=== PATIENT | female | born 1980 | race Hispanic/Latino ===

== ENCOUNTER 2017-05-08 02:03 | Emergency (ER) | payer BC ==
--- NOTE | 2017-05-08 02:11 | ED PDOC ---
Arrival/HPI - General Chief Complaint: Cough, Cold, Congestion Time Seen by Provider: 05/08/17 02:05 Historian: Patient - History of Present Illness Narrative History of Present Illness (Text): 05/08/17 02:10 Pooja Ramos is a 36 year old female who presents to the Emergency department complaining of cough. Patient denies any fever, chills, chest pain, shortness of breath, nausea, vomiting, headache, dizziness, or any other complaints. Symptom Onset: Gradual Symptom Course: Unchanged Activities at Onset: Light Context: Home Past Medical History - Provider Review Nursing Documentation Reviewed: Yes - Infectious Disease Hx of Infectious Diseases: None - Reproductive Menopause: No - Cardiac Hx Cardiac Disorders: Yes Hx Hypertension: Yes - Pulmonary Hx Respiratory Disorders: Yes Hx Asthma: Yes Hx Bronchitis: Yes - Neurological Hx Neurological Disorder: Yes Hx Migraine: Yes - HEENT Hx HEENT Disorder: No - Renal Hx Renal Disorder: No - Endocrine/Metabolic Hx Endocrine Disorders: No - Hematological/Oncological Hx Blood Disorders: Yes Hx Anemia: Yes - Integumentary Hx Dermatological Disorder: No - Musculoskeletal/Rheumatological Hx Musculoskeletal Disorders: No - Gastrointestinal Hx Gastrointestinal Disorders: No - Genitourinary/Gynecological Hx Genitourinary Disorders: No - Psychiatric Hx Psychophysiologic Disorder: No Hx Substance Use: No - Surgical History Hx Tonsillectomy: Yes Other/Comment: Rhinoplasty - Anesthesia Hx Anesthesia: Yes Hx Anesthesia Reactions: No Hx Malignant Hyperthermia: No Family/Social History - Physician Review Nursing Documentation Reviewed: Yes Family/Social History: Unknown Family HX Smoking Status: Former Smoker Hx Alcohol Use: No Hx Substance Use: No Allergies/Home Meds Allergies/Adverse Reactions: Allergies levofloxacin [From Levaquin] Allergy (Verified 05/08/17 02:14) RASH Home Medications: Home Meds Medication Instructions Recorded Confirmed Albuterol HFA [Ventolin HFA 90 1 inhaler INH PRN PRN 05/08/17 05/08/17 mcg/actuation (8 g)] Aspirin 81 mg PO DAILY 05/08/17 05/08/17 Cholecalciferol (Vitamin D3) 1 units PO DAILY 05/08/17 05/08/17 [Dialyvite Vitamin D] Ramapril 5 mg PO DAILY 05/08/17 05/08/17 Review of Systems - Physician Review All systems were reviewed & negative as marked: Yes - Review of Systems Constitutional: Normal. absent: Fevers Eyes: Normal ENT: Normal Respiratory: Cough. absent: SOB Cardiovascular: Normal. absent: Chest Pain Gastrointestinal: Normal. absent: Abdominal Pain, Diarrhea, Nausea, Vomiting Genitourinary Female: Normal. absent: Dysuria, Frequency, Hematuria, Urine Output Changes Musculoskeletal: Normal. absent: Back Pain, Neck Pain Skin: Normal. absent: Rash Neurological: Normal. absent: Headache, Dizziness Endocrine: Normal Hemo/Lymphatic: Normal Psychiatric: Normal Physical Exam Vital Signs Reviewed: Yes Vital Signs Temp Pulse Resp BP Pulse Ox 05/08/17 02:14 98.6 F 102 H 20 146/91 H 98 Temperature: Afebrile Blood Pressure: Normal Pulse: Regular Respiratory Rate: Normal Appearance: Positive for: Well-Appearing, Non-Toxic, Comfortable Pain Distress: None Mental Status: Positive for: Alert and Oriented X 3 - Systems Exam Head: Present: Atraumatic, Normocephalic Pupils: Present: PERRL Extroacular Muscles: Present: EOMI Conjunctiva: Present: Normal Mouth: Present: Moist Mucous Membranes Respiratory/Chest: Present: Clear to Auscultation, Good Air Exchange. No: Respiratory Distress, Accessory Muscle Use Cardiovascular: Present: Regular Rate and Rhythm, Normal S1, S2. No: Murmurs Skin: Present: Warm, Dry, Normal Color. No: Rashes Psychiatric: Present: Alert, Oriented x 3, Normal Insight, Normal Concentration Medical Decision Making ED Course and Treatment: 05/08/17 02:10 Impression: 36 year old female complaining of cough. Differential Diagnosis included but are not limited to: bronchitis Plan: -- Augmentin -- Prednisone -- Reassess and disposition Progress Notes: - Medication Orders Current Medication Orders: Discontinued Medications Amoxicillin/Clavulanate Potassium (Augmentin 875 Mg-125 Mg Tab) 1 tab PO STAT STA PRN Reason: Protocol Stop: 05/08/17 02:17 Last Admin: 05/08/17 02:23 Dose: 1 tab Prednisone (Prednisone Tab) 60 mg PO ONCE STA Stop: 05/08/17 02:15 Last Admin: 05/08/17 02:23 Dose: 60 mg - Scribe Statement The provider has reviewed the documentation as recorded by the Linnea Carrillo Provider Scribe Attestation: All medical record entries made by the Scribtigist were at my direction and personally dictated by me. I have reviewed the chart and agree that the record accurately reflects my personal performance of the history, physical exam, medical decision making, and the department course for this patient. I have also personally directed, reviewed, and agree with the discharge instructions and disposition. Disposition/Present on Arrival - Present on Arrival Any Indicators Present on Arrival: No History of DVT/PE: No History of Uncontrolled Diabetes: No Urinary Catheter: No History of Decub. Ulcer: No History Surgical Site Infection Following: None - Disposition Have Diagnosis and Disposition been Completed?: Yes Diagnosis: Bronchitis Disposition: HOME/ ROUTINE Disposition Time: 03:00 Condition: GOOD Discharge Instructions (ExitCare): Acute Bronchitis (ED) Prescriptions: Fluticasone/Salmeterol 250/50 [Advair Diskus] 1 dsk IH BID #1 inh Amoxicillin/Clavulanate [Augmentin 500 MG-125 MG] 1 tab PO BID #20 tab Fluconazole [Diflucan] 150 mg PO ONCE #1 tab predniSONE [predniSONE Tab] 20 mg PO TID #15 tab Hydrocodone/Chlorpheniramine [Tussionex] 5 ml PO QID #160 ml Referrals: Reuben Craft MD [Primary Care Provider] - Follow up with primary Forms: Vinja (Slovak)
[2017-05-08 02:15] VITALS: BP 146/91; PULSE 102; RESP 20; TEMP 98.6; O2SAT 98
[2017-05-08] MEDS ORDERED: Amoxicillin-Clav 875-125 mg Tab PO STA (02:16)
== END 2017-05-08 03:00 | disposition home or self-care (01) ==
LOC: ED 02:03
DX: J20.9 Acute bronchitis, unspecified (principal); Z87.891 Personal history of nicotine dependence

== ENCOUNTER 2017-05-28 05:15 | Emergency (ER) | payer BC ==
--- NOTE | 2017-05-28 05:44 | ED PDOC ---
Arrival/HPI - General Historian: Patient <HermelindaHenry travis - Last Filed: 05/28/17 06:03> <Carmelo Nguyễn - Last Filed: 05/28/17 06:07> <JessicapaulTorsten - Last Filed: 05/28/17 08:11> - General Time Seen by Provider: 05/28/17 05:20 - History of Present Illness Narrative History of Present Illness (Text): 05/28/17 05:41 36 F presents with 2 day history of L sided back pain from T11-L1. 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 She states that she took ibuprofen and motrin at home, but they have not helped. Pt denies any cp, CVA tenderness, and trauma. Pt further denies cp/sob/f/ch/n/v/d. Patient has no further complaints. (Henry Shen) Past Medical History - Provider Review Nursing Documentation Reviewed: Yes - Travel History Have you recently traveled outside [place] w/in the past 3 mons?: No - Infectious Disease Hx of Infectious Diseases: None - Cardiac Hx Cardiac Disorders: Yes Hx Hypertension: Yes - Pulmonary Hx Respiratory Disorders: Yes Hx Asthma: Yes Hx Bronchitis: Yes - Neurological Hx Neurological Disorder: Yes Hx Migraine: Yes - HEENT Hx HEENT Disorder: No - Renal Hx Renal Disorder: No - Endocrine/Metabolic Hx Endocrine Disorders: No - Hematological/Oncological Hx Blood Disorders: Yes Hx Anemia: Yes - Integumentary Hx Dermatological Disorder: No - Musculoskeletal/Rheumatological Hx Musculoskeletal Disorders: No - Gastrointestinal Hx Gastrointestinal Disorders: No - Genitourinary/Gynecological Hx Genitourinary Disorders: No - Psychiatric Hx Psychophysiologic Disorder: No Hx Substance Use: No - Surgical History Hx Tonsillectomy: Yes Other/Comment: Rhinoplasty - Anesthesia Hx Anesthesia: Yes Hx Anesthesia Reactions: No Hx Malignant Hyperthermia: No <Henry Shen - Last Filed: 05/28/17 06:03> Family/Social History - Physician Review Nursing Documentation Reviewed: Yes Family/Social History: No Known Family HX Smoking Status: Former Smoker Hx Alcohol Use: No Hx Substance Use: No <Henry Shen - Last Filed: 05/28/17 06:03> Allergies/Home Meds <Henry Shen - Last Filed: 05/28/17 06:03> <Carmelo Nguyễn - Last Filed: 05/28/17 06:07> <Torsten Kirkpatrick - Last Filed: 05/28/17 08:11> Allergies/Adverse Reactions: Allergies levofloxacin [From Levaquin] Allergy (Verified 05/28/17 05:22) RASH Home Medications: Home Meds Medication Instructions Recorded Confirmed Albuterol HFA [Ventolin HFA 90 1 inhaler INH PRN PRN 05/08/17 05/28/17 mcg/actuation (8 g)] Aspirin 81 mg PO DAILY 05/08/17 05/28/17 Cholecalciferol (Vitamin D3) 1 units PO DAILY 05/08/17 05/28/17 [Dialyvite Vitamin D] Ramapril 5 mg PO DAILY 05/08/17 05/28/17 Review of Systems - Physician Review All systems were reviewed & negative as marked: Yes - Review of Systems Constitutional: Normal. absent: Fatigue, Weight Change, Fevers Eyes: Normal. absent: Vision Changes, Photophobia, Eye Pain ENT: Normal. absent: Hearing Changes, Tinnitus, TMJ Pain Respiratory: Normal. absent: SOB, Cough, Sputum Cardiovascular: Normal. absent: Chest Pain, Palpitations, Edema, Calf Pain, SIMEON Gastrointestinal: Normal. absent: Abdominal Pain, Stool Changes, Constipation, Diarrhea, Nausea, Vomiting Genitourinary Female: Normal. absent: Dysuria, Frequency, Hematuria, Urine Output Changes Musculoskeletal: Normal. absent: Arthralgias, Back Pain, Neck Pain, Joint Swelling Skin: Normal. absent: Rash, Pruritis, Skin Lesions, Laceration Neurological: Normal. absent: Headache, Dizziness, Focal Weakness Endocrine: Normal. absent: Diaphoresis, Polyuria, Polydipsia Hemo/Lymphatic: Normal. absent: Adenopathy, Easy Bleeding, Easy Bruising Psychiatric: Normal. absent: Anxiety, Depression, Suicidal Ideation <Henry Shen - Last Filed: 05/28/17 06:03> Physical Exam Vital Signs Reviewed: Yes Temperature: Afebrile Blood Pressure: Normal Pulse: Regular Respiratory Rate: Normal Appearance: Positive for: Well-Appearing, Non-Toxic, Comfortable Pain Distress: None Mental Status: Positive for: Alert and Oriented X 3 - Systems Exam Head: Present: Atraumatic, Normocephalic. No: Tenderness, Contusion Pupils: Present: PERRL. No: Sluggish, Non-Reactive, Pinpoint Extroacular Muscles: Present: EOMI. No: Gaze Palsy, Entrapment Conjunctiva: Present: Normal. No: Injected, Icteric Ears: Present: Normal, NORMAL TM, Normal Canal. No: Erythema, TM Bulging Mouth: Present: Moist Mucous Membranes, Normal Lips. No: Dry, Drooling, Trismus Pharnyx: Present: Normal. No: ERYTHEMA, EXUDATE, TONSILS ENLARGED, Peritonsilar Swelling Nose (External): Present: Atraumatic. No: Abrasion, Contusion, Laceration Nose (Internal): Present: Normal Inspection, No Active Bleeding. No: Moist, Engorged, Edematous, Boggy Neck: Present: Normal Range of Motion. No: Meningeal Signs, MIDLINE TENDERNESS , Paraspinal Tenderness Respiratory/Chest: Present: Clear to Auscultation, Good Air Exchange. No: Respiratory Distress, Accessory Muscle Use Cardiovascular: Present: Regular Rate and Rhythm, Normal S1, S2. No: Murmurs Abdomen: Present: Normal Bowel Sounds. No: Tenderness, Distention, Peritoneal Signs Back: Present: Normal Inspection, Midline Tenderness, Paraspinal Tenderness, Pain with Leg Raise. No: CVA Tenderness, Decubitus Ulcer Upper Extremity: Present: Normal Inspection, Normal ROM, NORMAL PULSES. No: Cyanosis, Edema, Tenderness Lower Extremity: Present: Normal Inspection, NORMAL PULSES, Normal ROM. No: Edema, CALF TENDERNESS, Cyanosis Neurological: Present: GCS=15, CN II-XII Intact, Speech Normal, Motor Func Grossly Intact, Normal Sensory Function, Normal Cerebellar Funct, Norm Deep Tendon Reflexes Skin: Present: Warm, Dry, Normal Color. No: Rashes, Diaphoretic Psychiatric: Present: Alert, Oriented x 3, Normal Insight, Normal Concentration , Normal Affect, Normal Mood. No: Anxious, Depressed Mood, Suicidal Ideation, Homicidal Ideation <Henry Shen - Last Filed: 05/28/17 06:03> Medical Decision Making <Henry Shen - Last Filed: 05/28/17 06:03> <Carmelo Nguyễn - Last Filed: 05/28/17 06:07> <Torsten Kirkpatrick - Last Filed: 05/28/17 08:11> ED Course and Treatment: Assessed 05/28/17 05:30 Impression 36 F with 2 day duration of L sided back pain T11-L1 Plan - Toradol 15 IVP - Flexeril Rx'd - Ultram Rx'd - Muscle manipulation - Reassess Reassessed 05/28/17 05:50 - Pt feels better after Toradol - Pt stable for d/c (Henry Shen) Impression: Pt seen and evaluated with medical affairs manager. Pt presented for lower left-sided back pain for 2 days after performing CPR while at work. Aware and agree with HPI, clinical findings, plan, and management. Plan: -- Toradol -- Reassess and disposition (Carmelo Nguyễn) 05/28/17 08:06 patient with persistent back discomfort. R. upper lumbar parispinal region no flank pain, no hematuria. No ripping or tearing sensation, not traveling. pain quality reproducible with palpation verbal consent for lidocaine injection obtained sterile procedure observed 6ml 2%lido injected at the point of maximal tenderness pt reported relief recommended lido patch, and otc motrin/tylenol pt states she feels comfortable being dc'd home with outpatient f/u Pt states she understands to return to the ER right away for new or worsening symptoms or for inability to f/u with PMD or specialist as instructed. Patient states that she fully agrees with and understands discharge instructions. States that she agrees with the plan and disposition. Verbalized and repeated discharge instructions and plan. I have given the patient opportunity to ask any additional questions. (Torsten Kirkpatrick) - Medication Orders Current Medication Orders: Discontinued Medications Ketorolac Tromethamine (Toradol) 15 mg IM STAT STA Stop: 05/28/17 05:23 Last Admin: 05/28/17 05:41 Dose: 15 mg MAR Pain Assessment Document 05/28/17 05:41 SS (Rec: 05/28/17 05:41 SS [id number]) Pain Reassessment Is this a pain reassessment? No Sleep Is patient sleeping during reassessment? No Location Left, Right or Bilateral Left Upper or Lower Lower Pain Location Body Site Back Description Intensity of Pain at present 10 IM Administration Charges Document 05/28/17 05:41 SS (Rec: 05/28/17 05:41 SS [id number]) Charges for Administration # of IM Administrations 1 Lidocaine HCl (Lidocaine 2% 20ml Vial) 20 ml IJ ONCE STA Stop: 05/28/17 07:51 Last Admin: 05/28/17 07:55 Dose: 20 ml Comments: Given to for use on patient - PA / CASE MANAGEMENT SOCIAL WORKER / Resident Statement / has reviewed & agrees with the documentation as recorded. / has examined the patient and agrees with the treatment plan. <Carmelo Nguyễn - Last Filed: 05/28/17 06:07> Disposition/Present on Arrival - Present on Arrival Any Indicators Present on Arrival: No History of DVT/PE: No History of Uncontrolled Diabetes: No Urinary Catheter: No History of Decub. Ulcer: No History Surgical Site Infection Following: None - Disposition Have Diagnosis and Disposition been Completed?: Yes Disposition Time: 05:50 Patient Plan: Discharge <Henry Shen - Last Filed: 05/28/17 06:03> <Carmelo Nguyễn - Last Filed: 05/28/17 06:07> - Present on Arrival Any Indicators Present on Arrival: No <Torsten Kirkpatrick - Last Filed: 05/28/17 08:11> - Disposition Diagnosis: Muscle spasm Disposition: HOME/ ROUTINE Condition: GOOD Discharge Instructions (ExitCare): Back Pain (ED) Additional Instructions: PLEASE RETURN TO THE EMERGENCY DEPARTMENT FOR NEW OR WORSENING SYMPTOMS. RETURN RIGHT AWAY IF YOU CANNOT FOLLOW UP WITH YOUR PRIMARY CARE DOCTOR, CLINIC, OR SPECIALIST IN 1-2 DAYS. Prescriptions: Lidocaine 5% [Lidoderm] 1 ea TD DAILY #3 patch Forms: WORK NOTE
[2017-05-28] MEDS ORDERED: Lidocaine 2% Inj (20ml) IJ STA (07:50)
== END 2017-05-28 08:10 | disposition home or self-care (01) ==
LOC: ED 05:15
DX: M62.838 Other muscle spasm (principal); I10 Essential (primary) hypertension
CPT/HCPCS: 96372; 99282; J1885